=== PATIENT | female | born 1990 | race Caucasian/White ===

== ENCOUNTER → 2025-03-12 10:04 | Outpatient (CLI) | payer OTHER, SELFPAY ==
--- NOTE | 2025-03-12 10:06 | DI.RAD.S_ITS ---
PROCEDURE: XR KNEE LT 3V INDICATIONS: LEFT KNEE PAIN TECHNIQUE: 3 views of the knee were acquired. COMPARISON: None. FINDINGS: Bones: Postsurgical changes are noted from prior ACL repair. Left knee alignment is anatomic. No acute fracture or dislocation. No abnormal anterior tibial translation. 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 Slight lateral subluxation of patella is seen. No fractures or dislocations. No suspicious bony lesions. Soft tissues: No significant joint effusion. No suspicious soft tissue calcifications. IMPRESSION: Prior ACL repair with postsurgical changes. No abnormal anterior tibial translation. No acute fracture or dislocation. No significant joint effusion. Slight lateral subluxation of patella. Dictated by: Lopez Lindo M.D. on 03/12/2025 at 10:30 Approved by: Lopez Lindo M.D. on 03/12/2025 at 10:33
--- NOTE | 2025-03-12 10:06 | DI.RAD.S_ITS ---
PROCEDURE: XR LUMBAR SPINE MIN 4V INDICATIONS: BACK PAIN TECHNIQUE: 5 views of the lumbar spine were acquired, including bilateral oblique views. COMPARISON: None. FINDINGS: Bones: 5 nonrib-bearing vertebrae are present. There is slight rightward curvature of lumbar spine with apex at L3 level. Mild degenerative endplate changes are noted at L4-5 and L5-S1 levels with slight loss of disc height. No vertebral body compression fractures. No suspicious bony lesions. Soft tissues: Overlying bowel gas pattern is normal. No suspicious soft tissue calcifications. Oblique images: No pars defects. IMPRESSION: Mild degenerative disc disease at L4-5 and L5-S1 levels. Mild rightward curvature centered at L3 level. No acute vertebral body compression fracture. No gross pars defects or significant bony foraminal stenosis. Dictated by: Lopez Lindo M.D. on 03/12/2025 at 10:29 Approved by: Lopez Lindo M.D. on 03/12/2025 at 10:30
== END ==
PROVIDERS: PCP Family Medicine; Referring Provider Physical Medicine & Rehabilitation; Visit Provider Physical Medicine & Rehabilitation
DX: S83.012A Lateral subluxation of left patella, initial encounter (principal); M47.896 Other spondylosis, lumbar region; M54.9 Dorsalgia, unspecified; M25.562 Pain in left knee; M51.369 Other intervertebral disc degeneration, lumbar region without mention of lumbar back pain or lower extremity pain; M51.379 Other intervertebral disc degeneration, lumbosacral region without mention of lumbar back pain or lower extremity pain; Z98.890 Other specified postprocedural states
CPT/HCPCS: 72110; 73562; 99214